=== PATIENT | female | born 2000 | race Caucasian/White ===

== ENCOUNTER 2019-04-17 19:39 | Emergency (ER) | payer MEDICAID ==
[~2019-04-17] VITALS: Ht 160 cm; Wt 81.2 kg
[2019-04-17 19:55] VITALS: Ht 160 cm; Wt 81.2 kg
[2019-04-17 21:07] VITALS: BP 112/70
== END 2019-04-17 21:07 | disposition home or self-care (01) ==
LOC: ED 19:39
DX: R20.2 Paresthesia of skin (principal)